=== PATIENT | female | born 1990 | race Caucasian/White ===

== ENCOUNTER 2016-12-18 10:56 | Outpatient (CLI) | payer OTHER ==
[2016-03-06 06:58] VITALS: BP 146/89
== END 2016-12-18 10:57 ==
LOC: LABRHC 10:56
PROVIDERS: ATTEND Family Medicine
DX: Z12.4 Encounter for screening for malignant neoplasm of cervix (principal)
CPT/HCPCS: 88148; G0143

== ENCOUNTER 2017-08-04 08:07 | Outpatient (CLI) | payer OTHER ==
[2016-03-06 06:58] VITALS: BP 146/89
[2017-08-04 08:40] LABS: BASOPHILS % 0.5 (0.0-1.5); EOSINOPHILS % 1.5 % (0.0-6.8); MEAN CORPUSCULAR HEMOGLOBIN 29.8 pg (28.0-34.0); MEAN CORPUSCULAR VOLUME 87.7 fl (80.0-100.0); NEUTROPHILS # 1.8 # k/uL (1.4-7.7)
[2017-08-04 09:03] LABS: eGFR (African) > 60; eGFR (Non-African) > 60
== END 2017-08-04 08:10 ==
LOC: LAB 08:07
PROVIDERS: ATTEND Physician Assistant
DX: M79.89 Other specified soft tissue disorders (principal)
CPT/HCPCS: 36415; 80053; 85025